=== PATIENT | female | born 1930 | race Caucasian/White ===

== ENCOUNTER → 2018-10-27 | Outpatient (CLI) | payer MEDICARE, OTHER ==
[~2018-10-27] MED LIST: ASPI-1471 PO; CALC-597 PO; CALC500T6 PO; LEVO25TA61 PO; LISI-362 PO; MULT-34 PO; SIMV-54 PO; TRIA-20 PO
[2018-10-27 14:21] LABS: PLATELET COUNT, AUTOMATED 242 K/uL (150-450)
== END ==
LOC: LAB 14:07
PROVIDERS: ATTEND Family Medicine
DX: I10 Essential (primary) hypertension (principal); E78.5 Hyperlipidemia, unspecified; E03.9 Hypothyroidism, unspecified
CPT/HCPCS: 36415; 82040; 82247; 82310; 82374; 82435; 82465; 82565; 82947; 83718; 84075; 84132; 84155; 84295; 84443; 84450; 84460; 84478; 84520; 85025

== ENCOUNTER → 2018-11-12 | Outpatient (CLI) | payer MEDICARE, OTHER ==
--- NOTE | 2018-11-13 08:47 | RADIOLOGY IMAGING REPORT ---
FACILITY: [facility] PATIENT NAME: DIANA EASTMAN : [id number] MR: [id number] V: [id number] EXAM DATE: ORDERING PHYSICIAN: KARLY ATKINSON TECHNOLOGIST: Valorie Draper PROCEDURE:BILATERAL DIGITAL SCREENING MAMMOGRAM WITH CAD ASSISTED INTERPRETATION COMPARISON:Prior mammograms 05/31/16, 08/04/14, 07/22/14, 07/09/13, 02/03/12. INDICATIONS:screening FINDINGS: The breasts are heterogeneously dense which can obscure small masses. The parenchymal pattern has remained stable allowing for difference in mammographic technique & patient positioning. DIAGNOSTIC CATEGORY 1--NEGATIVE. RECOMMENDATIONS: ROUTINE MAMMOGRAM AND CLINICAL EVALUATION. IMPRESSION: BIRADS 1: Negative. No significant abnormality is seen. Dictated by: Hoda Gonsalez M.D. on 11/12/2018 at 16:19 Transcribed by: MARY on 11/13/2018 at 8:07 Approved by: Hoda Gonsalez M.D. on 11/13/2018 at 8:46 [facility]
== END ==
LOC: MAMO 00:52
PROVIDERS: ATTEND Family Medicine
DX: Z12.31 Encounter for screening mammogram for malignant neoplasm of breast (principal)
CPT/HCPCS: 77067